=== PATIENT | female | born 1945 | race Caucasian/White ===

== ENCOUNTER 2024-08-23 09:05 | Day surgery (SDC) | payer MEDICARE, OTHER ==
[2024-08-23] MEDS ORDERED: AFRIN NASAL MIST 15 ML BOT ONE ×2 (10:13→11:48)
[2024-08-23 10:35] LABS: Hematocrit 42.3 % (34.9-44.5); Hemoglobin 13.7 g/dL (12.0-15.5)
[2024-08-23] MEDS ORDERED: Fentanyl 100 MCG/2 ML VIAL ONE ×2 (10:45→13:35)
[2024-08-23] MEDS ORDERED: PROPOFOL 20 ML ONE (10:45)
[2024-08-23] MEDS ORDERED: Rocuronium Bromide 10 MG/ML (10ML VIAL) ONE (10:45)
[2024-08-23] MEDS ORDERED: Ondansetron PF 4 MG/2 ML Vial ONE (10:45)
[2024-08-23] MEDS ORDERED: Dexamethasone 20 MG/5 ML VIAL ONE (10:45)
[2024-08-23 10:58] LABS: Anion Gap 14 mmol/L (10-20); BUN (Urea Nitrogen) 18 mg/dL (9.8-20.1); Calc. Creatinine Clearance 0 mL/min (70-130); Calcium 9.1 mg/dL (7.8-10.44); Carbon Dioxide 25 mmol/L (23-31); Chloride 109 mmol/L (98-107); Estimated GFR 45; Glucose 99 mg/dL (83-110); Potassium 4.6 mmol/L (3.5-5.1); Sodium 143 mmol/L (136-145)
[2024-08-23] MEDS ORDERED: EPINEPHrine 1 MG/ML VIAL ONE ×2 (11:48→12:31)
[2024-08-23] MEDS ORDERED: Lidocaine 1% w/Epinephrine 1:200K 30 ML VIAL ONE (11:48)
[2024-08-23] MEDS ORDERED: SUGAMMADEX SODIUM 200 MG/2 ML VIAL ONE (13:03)
[2024-08-23] MEDS ORDERED: Hydrocodone-Acetamin 15 ML UDCUP ONE (15:36)
== END 2024-08-23 16:00 | disposition home or self-care (01) ==
LOC: CSHSDC 09:05
PROVIDERS: ATTEND Specialist
PROC: 099R8ZZ Drainage of Left Maxillary Sinus, Via Natural or Artificial Opening Endoscopic (ICD-10-PCS; principal; 2024-08-23)
PROC: 099Q8ZZ Drainage of Right Maxillary Sinus, Via Natural or Artificial Opening Endoscopic (ICD-10-PCS; 2024-08-23)
PROC: 099T8ZZ Drainage of Left Frontal Sinus, Via Natural or Artificial Opening Endoscopic (ICD-10-PCS; 2024-08-23)
PROC: 099S8ZZ Drainage of Right Frontal Sinus, Via Natural or Artificial Opening Endoscopic (ICD-10-PCS; 2024-08-23)
PROC: 09SL8ZZ Reposition Nasal Turbinate, Via Natural or Artificial Opening Endoscopic (ICD-10-PCS; 2024-08-23)
PROC: 09TV8ZZ Resection of Left Ethmoid Sinus, Via Natural or Artificial Opening Endoscopic (ICD-10-PCS; 2024-08-23)
PROC: 09TU8ZZ Resection of Right Ethmoid Sinus, Via Natural or Artificial Opening Endoscopic (ICD-10-PCS; 2024-08-23)
DX: J32.4 Chronic pansinusitis (principal); J34.3 Hypertrophy of nasal turbinates; J30.1 Allergic rhinitis due to pollen; J30.81 Allergic rhinitis due to animal (cat) (dog) hair and dander; J30.89 Other allergic rhinitis; I12.9 Hypertensive chronic kidney disease with stage 1 through stage 4 chronic kidney disease, or unspecified chronic kidney disease; N18.9 Chronic kidney disease, unspecified; E78.5 Hyperlipidemia, unspecified; E03.9 Hypothyroidism, unspecified; K21.9 Gastro-esophageal reflux disease without esophagitis; Z90.89 Acquired absence of other organs; Z90.710 Acquired absence of both cervix and uterus; Z98.41 Cataract extraction status, right eye; Z98.42 Cataract extraction status, left eye; Z88.2 Allergy status to sulfonamides; Z79.890 Hormone replacement therapy; Z79.899 Other long term (current) drug therapy
CPT/HCPCS: 30130; 31253; 31267; 61782; 80048; 85014; 85018; J0171; J1100; J2405; J2704; J3010; 36415; 93005; 93010